=== PATIENT | male | born 1935 | race Caucasian/White ===

== ENCOUNTER → 2017-09-08 11:13 | Outpatient (CLI) | payer MEDICARE, MEDICAID, SELFPAY | PROVIDERS: Family Provider Family Medicine; PCP Family Medicine; Visit Provider Internal Medicine Hematology & Oncology | DX: Z85.46 Personal history of malignant neoplasm of prostate (principal) | CPT/HCPCS: 84153 ==

== ENCOUNTER → 2018-04-28 10:56 | Outpatient (CLI) | payer MEDICARE, MEDICAID, SELFPAY ==
[2018-04-28 11:08] LABS: Add Manual Diff / Slide Review NO; Basophils Percent Auto 0.7 % (0-2); Eosinophils Percent Auto 4.2 % (2-4); Hematocrit 39.7 % (41-53); Hemoglobin 13.2 g/dL (13.5-17.5); Mean Corpuscular HGB Conc 33.3 % (30-36); Mean Corpuscular Hemoglobin 29.6 PG (26-34); Mean Corpuscular Volume 89.1 fL (80-100); Monocytes Percent Auto 5.9 % (3-14); Neutrophils Absolute Auto 3700 /uL (1500-7000); Neutrophils Percent Auto 61.2 % (50-75); Platelet Count 320 X10^3/uL (150-400); Red Blood Cell Count 4.46 X10^6/uL (4.5-5.9); Red Cell Distribution Width 14.7 % (11.6-14.8); White Blood Cell Count 6.1 X10^3/uL (4.5-11.0)
[2018-04-28 11:19] LABS: Alanine Aminotransferase 19 IU/L (21-72); Albumin 4.3 g/dL (3.5-5.0); Albumin Globulin Ratio 1.3 (1.0-2.8); Alkaline Phosphatase 73 U/L (38-126); Aspartate Aminotransferase 22 IU/L (17-59); BUN Creatinine Ratio 18.6 (6-22); Bilirubin Total 0.4 mg/dL (0.2-1.3); Blood Urea Nitrogen 26 mg/dL (9-20); Calcium 9.5 mg/dL (8.4-10.2); Carbon Dioxide 27 mmol/L (22-32); Chloride 105 mmol/L (98-107); Estimated Glomerular Filt Rate 48.8 mL/min (>60); Globulin 3.2 g/dL (1.7-4.1); Glucose 108 mg/dL (80-110); HEMOLYSIS < 15 (0-50); Potassium 4.9 mmol/L (3.4-5.1); Sodium 140 mmol/L (137-145); Total Protein 7.5 g/dL (6.3-8.2)
--- NOTE | 2018-04-28 15:23 | PC.NURSE ---
Creatinine elevated on todays labs to 1.4 up from 1.3. PSA showed a drop from 10.5 to 7.74. All remaining labs stable
== END ==
PROVIDERS: Family Provider Family Medicine; PCP Family Medicine
DX: C61 Malignant neoplasm of prostate (principal); C79.51 Secondary malignant neoplasm of bone
CPT/HCPCS: 36415; 80053; 84153; 85025

== ENCOUNTER → 2019-06-06 09:05 | Outpatient (CLI) | payer MEDICARE, SELFPAY ==
[2019-06-06 09:58] LABS: Add Manual Diff / Slide Review NO; Basophils Absolute Auto 100 /uL (0-100); Basophils Percent Auto 1.3 % (0-2); Eosinophils Absolute Auto 200 /uL (0-450); Eosinophils Percent Auto 3.9 % (2-4); Hematocrit 37.1 % (41-53); Hemoglobin 12.4 g/dL (13.5-17.5); Lymphocytes Absolute Auto 1300 /uL (1100-4500); Lymphocytes Percent Auto 26.3 % (25-40); Mean Corpuscular HGB Conc 33.5 % (30-36); Mean Corpuscular Hemoglobin 29.3 PG (26-34); Mean Corpuscular Volume 87.4 fL (80-100); Monocytes Absolute Auto 300 /uL (0-900); Monocytes Percent Auto 6.2 % (3-14); Neutrophils Absolute Auto 3200 /uL (1500-7000); Neutrophils Percent Auto 62.3 % (50-75); Platelet Count 282 X10^3/uL (150-400); Red Blood Cell Count 4.25 X10^6/uL (4.5-5.9); Red Cell Distribution Width 15.5 % (11.6-14.8); White Blood Cell Count 5.1 X10^3/uL (4.5-11.0)
[2019-06-06 10:18] LABS: Alanine Aminotransferase 9 IU/L (<50); Albumin Globulin Ratio 1.2 (1.0-2.8); Alkaline Phosphatase 107 U/L (38-126); Aspartate Aminotransferase 24 IU/L (17-59); BUN Creatinine Ratio 18.3 (6-22); Bilirubin Total 0.4 mg/dL (0.2-1.3); Blood Urea Nitrogen 22 mg/dL (9-20); Calcium 9.4 mg/dL (8.4-10.2); Carbon Dioxide 28 mmol/L (22-32); Chloride 103 mmol/L (98-107); Estimated Glomerular Filt Rate 58.1 mL/min (>60); Globulin 3.3 g/dL (1.7-4.1); Glucose 105 mg/dL (80-110); HEMOLYSIS < 15 (0-50); Potassium 4.1 mmol/L (3.4-5.1); Sodium 138 mmol/L (137-145); Total Protein 7.3 g/dL (6.3-8.2)
[2019-06-06 10:48] LABS: Prostate Specific Antigen 8.04 ng/mL (0.10-4.00)
== END ==
PROVIDERS: PCP Student in an Organized Health Care Education/Training Program
DX: C61 Malignant neoplasm of prostate (principal)
CPT/HCPCS: 36415; 80053; 84153; 85025

== ENCOUNTER → 2019-08-29 08:56 | Outpatient (CLI) | payer MEDICARE, SELFPAY ==
[2019-08-29 09:20] LABS: Add Manual Diff / Slide Review NO; Basophils Absolute Auto 100 /uL (0-100); Basophils Percent Auto 1.3 % (0-2); Eosinophils Absolute Auto 200 /uL (0-450); Eosinophils Percent Auto 3.9 % (2-4); Hematocrit 35.8 % (41-53); Hemoglobin 12.3 g/dL (13.5-17.5); Lymphocytes Absolute Auto 1300 /uL (1100-4500); Lymphocytes Percent Auto 25.8 % (25-40); Mean Corpuscular HGB Conc 34.4 % (30-36); Mean Corpuscular Hemoglobin 29.8 PG (26-34); Mean Corpuscular Volume 86.8 fL (80-100); Monocytes Absolute Auto 400 /uL (0-900); Monocytes Percent Auto 7.1 % (3-14); Neutrophils Absolute Auto 3100 /uL (1500-7000); Neutrophils Percent Auto 61.9 % (50-75); Platelet Count 267 X10^3/uL (150-400); Red Blood Cell Count 4.13 X10^6/uL (4.5-5.9); Red Cell Distribution Width 15.4 % (11.6-14.8); White Blood Cell Count 4.9 X10^3/uL (4.5-11.0)
[2019-08-29 09:32] LABS: Alanine Aminotransferase 9 IU/L (<50); Albumin Globulin Ratio 1.2 (1.0-2.8); Alkaline Phosphatase 87 U/L (38-126); Aspartate Aminotransferase 24 IU/L (17-59); BUN Creatinine Ratio 17.7 (6-22); Bilirubin Total 0.6 mg/dL (0.2-1.3); Blood Urea Nitrogen 23 mg/dL (9-20); Calcium 9.3 mg/dL (8.4-10.2); Carbon Dioxide 28 mmol/L (22-32); Chloride 101 mmol/L (98-107); Estimated Glomerular Filt Rate 52.9 mL/min (>60); Globulin 3.4 g/dL (1.7-4.1); Glucose 103 mg/dL (80-110); HEMOLYSIS < 15 (0-50); Potassium 4.8 mmol/L (3.4-5.1); Sodium 136 mmol/L (137-145); Total Protein 7.4 g/dL (6.3-8.2)
[2019-08-29 10:03] LABS: Prostate Specific Antigen 11.1 ng/mL (0.10-4.00)
[2019-08-29 10:05] LABS: Testosterone 16.2 ng/dL (71.8-623)
== END ==
PROVIDERS: PCP Student in an Organized Health Care Education/Training Program; Referring Provider Internal Medicine Hematology & Oncology; Visit Provider Internal Medicine Hematology & Oncology
DX: C61 Malignant neoplasm of prostate (principal)
CPT/HCPCS: 36415; 80053; 84153; 84403; 85025

== ENCOUNTER → 2019-09-04 09:34 | Outpatient (CLI) | payer MEDICARE, SELFPAY ==
--- NOTE | 2019-09-04 09:36 | DI.CT.S_ITS ---
PROCEDURE: CT CHEST ABD PEL W CON INDICATIONS: PROSTATE CANCER, RISING CEA TECHNIQUE: After the administration of oral and intravenous contrast, 5 mm thick sections acquired from the lung apices to the symphysis. 5 mm coronal and sagittal reformats were performed, with additional 7 mm coronal MIP reformats through the lungs. For radiation dose reduction, the following was used: automated exposure control, adjustment of mA and/or kV according to patient size. COMPARISON: [facility], CT, ABDOMEN/PELVIS WITH CONTRAST, 08/07/2016, 14:54. MR, PELVIS WITHOUT CONTRAST, 11/22/2009, 9:32. CR, HIP 2V LEFT, 10/20/2007, 13:41. [place], [place], BONE SCAN WHOLE BODY, 10/20/2007, 12:49. MR, PELVIS WITH AND WITHOUT CONTRA, 10/20/2007, 10:06. [place], BONE SCAN WHOLE BODY, 08/28/2016, 13:11. FINDINGS: Image quality: Excellent. CHEST: Lungs and pleura: No acute airspace opacities. No pleural effusions or pneumothorax. Central and peripheral airways appear patent and normal in caliber. Mediastinum: Heart size is normal. No pericardial effusion. No mediastinal or hilar adenopathy by size criteria. Thoracic aorta and central pulmonary arteries are normal in size. Esophagus is normal in caliber. No hiatal hernia. Chest wall: No axillary or supraclavicular adenopathy by size criteria. Thyroid gland is unremarkable. ABDOMEN: Solid organs: Liver is normal in size and enhancement. Gallbladder is unremarkable. Biliary system is non dilated. Pancreas enhances normally. Spleen is normal in size and enhancement. No adrenal nodules. Kidneys demonstrate normal size and enhancement, without hydronephrosis. Peritoneum and bowel: Bowel loops demonstrate normal wall thickness and caliber. No free fluid or air. Nodes and vessels: No retroperitoneal or mesenteric adenopathy by size criteria. Aorta and inferior vena cava are normal in size. Miscellaneous: No ventral hernias. PELVIS: Genitourinary: Bladder wall thickness is normal. Prostatectomy is noted. Miscellaneous: No inguinal hernias or adenopathy. Bones: Multiple pronounced punctate scattered areas of sclerosis are present within the axial and appendicular skeleton. Areas within the abdomen and pelvis previously visualized on the 2017 exam are unchanged. Similar foci are identified within the upper thoracic and cervical spine as well as multiple ribs bilaterally. It is noted these areas were not included within the [id number] on previous exam. IMPRESSION: 1. Nonspecific punctate areas of sclerosis within the axial and appendicular skeleton as described above. It is noted that foci visualized on prior exam are stable. However, additional foci within the cervical and thoracic spine as well as ribs are unable to be evaluated as no prior CT exams within this region are identified. These may represent multiple bone islands. However, given history of rising CEA levels, metastatic disease cannot be excluded. Recommend correlation with bone scan. Dictated by: Fallon Blank M.D. on 09/04/2019 at 13:26 Approved by: Fallon Blank M.D. on 09/04/2019 at 13:35
--- NOTE | 2019-09-04 09:36 | DI.NM.S_ITS ---
PROCEDURE: [place] BONE SCAN WHOLE BODY RADIOPHARMACEUTICAL: 20.2 mCi Tc-99m MDP IV. INDICATIONS: prostate cancer, rising PSA TECHNIQUE: Delayed whole-body scintigrams were obtained approximately 3-4 hours after intravenous injection of radiotracer. Anterior and posterior views were acquired from vertex to feet. Additional left and right oblique views of the thorax were obtained. COMPARISON: [facility], CT, CT CHEST ABD PEL W CON, 09/04/2019, 10:31. FINDINGS: Increased radiotracer uptake noted in the posterior and medial margin of the right 10th and 11th ribs which correspond to subacute fractures identified by CT scan obtained 09/04/2019. Increased radiotracer uptake noted in the posterior lateral aspect of the right rib which corresponds to subacute fracture identified the prior CT scan. Increased radiotracer uptake noted in the anterolateral margins of the right sixth seventh and eighth ribs which correspond to subacute fractures identified prior prior CT scan. Subtle focus of increased radiotracer uptake noted in the anterolateral left sixth rib which corresponds to a small approximately 5 mm diameter rounded sclerotic lesion identified by CT scan. There are additional small sclerotic lesions identified in the left ribs in the thoracic spine which do not have associated increased FDG uptake. No photopenic lesions identified in the osseous skeleton. Mild uptake noted in the cervical spine, thoracic spine, lumbar spine, wrists bilaterally and right knee compatible with osteoarthritis. No abnormal soft tissue uptake. Activity in the kidneys is normal and symmetric. IMPRESSION: 1. Increased radiotracer uptake associated with 5 mm sclerotic lesion in the left seventh rib. Early osseous metastatic disease cannot be excluded. Additional small sclerotic lesions in the ribs bilaterally and thoracic spine do not demonstrate increased FDG uptake which could be due to the absence of osteoblastic activity or lesions below resolution of the study. 2. Subacute right 6th, 7th, 8th 9th, 10th and 11th rib fractures. Dictated by: Kim Florez MD, PhD on 09/04/2019 at 15:37 Approved by: Kim Florez MD, PhD on 09/04/2019 at 15:47
== END ==
PROVIDERS: PCP Student in an Organized Health Care Education/Training Program; Referring Provider Internal Medicine Hematology & Oncology; Visit Provider Internal Medicine Hematology & Oncology
DX: C61 Malignant neoplasm of prostate (principal); R97.21 Rising PSA following treatment for malignant neoplasm of prostate; M84.48XA Pathological fracture, other site, initial encounter for fracture
CPT/HCPCS: 71260; 74177; 78306; A9503; Q9967

== ENCOUNTER → 2020-05-23 10:50 | Outpatient (CLI) | payer MEDICARE, MEDICAID, SELFPAY ==
--- NOTE | 2020-05-23 10:51 | DI.US.S_ITS ---
PROCEDURE: US ABDOMEN COMPLETE INDICATIONS: prostate cancer, rising Cr, ?hydronephrosis TECHNIQUE: Real-time scanning was performed of the abdominal and retroperitoneal organs, with image documentation. COMPARISON: [facility], CT, ABDOMEN/PELVIS WITH CONTRAST, 08/07/2016, 14:54. [facility], CT, CT CHEST ABD PEL W CON, 09/04/2019, 10:31. FINDINGS: Liver: Liver is normal in size and homogeneous in echotexture. The main portal vein is demonstrated to be patent. Gallbladder: No findings of gallstones or sludge are seen. The gallbladder wall is not thickened, measuring 3 mm or less. No specific pericholecystic fluid is seen. The sonographic Alexander sign is negative. Biliary ducts: Intrahepatic bile ducts are non-dilated. Extrahepatic bile duct caliber measures 2 mm. Normal is 6-7 mm or less in diameter, or 10 mm or less post-cholecystectomy. Pancreas: Visualized portions of the pancreas are sonographically normal. Spleen: Spleen is normal in size and homogeneous in echotexture. Kidneys: Kidneys are normal in size and echotexture. Right kidney measures 11.1 cm long; left kidney measures 11.7 cm long. No hydronephrosis or nephrolithiasis. No solid masses. Aorta: Visualized aorta is normal in caliber at less than 3 cm. Iliacs: Proximal common iliac arteries are normal in caliber at less than 2.5 cm. IVC: Intrahepatic inferior vena cava is patent. Miscellaneous: No free abdominal fluid. IMPRESSION: Negative for hydronephrosis. Dictated by: Hardeep Landeros M.D. on 05/23/2020 at 11:18 Approved by: Hardeep Landeros M.D. on 05/23/2020 at 11:19
== END ==
PROVIDERS: PCP Student in an Organized Health Care Education/Training Program; Referring Provider Internal Medicine Hematology & Oncology; Visit Provider Internal Medicine Hematology & Oncology
DX: C61 Malignant neoplasm of prostate (principal); C79.51 Secondary malignant neoplasm of bone; R79.89 Other specified abnormal findings of blood chemistry
CPT/HCPCS: 76700

== ENCOUNTER → 2020-06-26 11:18 | Outpatient (CLI) | payer MEDICARE, MEDICAID, SELFPAY ==
--- NOTE | 2020-06-26 11:21 | DI.RAD.S_ITS ---
PROCEDURE: XR LUMBAR SPINE 2-3V INDICATIONS: lumbar spine pain after rotation ten days ago TECHNIQUE: 3 views of the lumbar spine were acquired. COMPARISON: [facility], CR, XR THORACIC SPINE 3V, 06/26/2020, 11:26. FINDINGS: Bones: 5 [id number] vertebrae are present. There is normal bony alignment. No vertebral body compression fractures. No suspicious bony lesions. The earlier thoracic spine imaging same day had involved segmentation anatomy Caltrate from the upper thoracic spine inferiorly. The current study allows accurate assessment of the lumbosacral spine from the S1 level and directed cephalad. There is a segmentation change as a result. There is a moderate T12 wedge compression fracture and a vertebra plana fracture involving L1. L2 shows an inferior endplate impaction fracture, and overall the chronicity is uncertain Soft tissues: Overlying bowel gas pattern is normal. No suspicious soft tissue calcifications. IMPRESSION: T12 wedge, L1 vertebral plana, and L2 inferior endplate and vertebral body compression fracture. Chronicity is uncertain. MR scanning can be utilized to establish chronicity. Note: The segmentation anatomy on this examination is considered more accurate than on the thoracic study from earlier today, and please considered the thoracolumbar junction fractures described in this report as depicting the correct levels of abnormality. Dictated by: Michael Crouch M.D. on 06/26/2020 at 13:59 Approved by: Michael Crouch M.D. on 06/26/2020 at 14:03
--- NOTE | 2020-06-26 11:21 | DI.RAD.S_ITS ---
PROCEDURE: XR THORACIC SPINE 3V INDICATIONS: lumbar spine pain after rotation ten days ago TECHNIQUE: 3 views of the thoracic spine were acquired. COMPARISON: None. FINDINGS: Bones: No dislocations. No suspicious bony lesions. 12 pairs of ribs are noted, and appear intact where visualized. There is a moderate wedge type compression fracture at what appears to be T9 and T11, and a severe vertebra plana compression fracture at T12. Chronicity is uncertain. Soft tissues: No paravertebral stripe thickening. IMPRESSION: Degenerative disc disease and 3 nearby lower thoracic spine compression fractures with vertebra plana at T12 and moderate wedge compression fractures at T11 and T9. MR could establish chronicity. Dictated by: Michael Crouch M.D. on 06/26/2020 at 13:09 Approved by: Michael Crouch M.D. on 06/26/2020 at 13:29
== END ==
PROVIDERS: PCP Student in an Organized Health Care Education/Training Program; Referring Provider Nurse Practitioner Family; Visit Provider Nurse Practitioner Family
DX: M54.9 Dorsalgia, unspecified (principal); M48.55XA Collapsed vertebra, not elsewhere classified, thoracolumbar region, initial encounter for fracture; M51.34 Other intervertebral disc degeneration, thoracic region
CPT/HCPCS: 72072; 72100

== ENCOUNTER → 2020-07-05 09:02 | Outpatient (CLI) | payer MEDICARE, MEDICAID, SELFPAY ==
--- NOTE | 2020-07-05 09:03 | DI.MRI.S_ITS ---
PROCEDURE: MR LUMBAR SPINE WO/W CON INDICATIONS: back pain TECHNIQUE: Noncontrast sagittal T1 spin echo and T2 fast spin echo, sagittal STIR, axial T1 and T2 fast spin echo through the lumbar spine. In cases with scoliosis, additional coronal T2 fast spin echo may be performed. After the administration of contrast, sagittal and axial T1 spin echo with fat saturation through the lumbar spine. COMPARISON: [facility], CT, CT CHEST ABD PEL W CON, 09/04/2019, 10:31. [facility], CR, XR THORACIC SPINE 3V, 06/26/2020, 11:26. [facility], CR, XR LUMBAR SPINE 2-3V, 06/26/2020, 11:26. [facility], [place], [place] BONE SCAN WHOLE BODY, 09/04/2019, 13:09. FINDINGS: Image quality: Excellent. Alignment and curvature: There is normal bony alignment. Marrow: There is an L2 endplate deformity, unchanged compared to prior exam. There is mild increased enhancement within this region. There is severe compression deformity comedo ink at least 90% at L1 an approximate 45% compression deformity at T12. There are unchanged compared to thoracic and lumbar spine x-rays of 06/26/2020, but new compared to more remote prior exams. Areas of enhancement are identified within the T12 and L1 vertebral bodies. Spinal cord: Conus medullaris terminates at the L1 level. Visualized spinal cord demonstrates normal signal, without suspicious enhancement. Paraspinous soft tissues: No paravertebral masses or abnormal enhancement. Discs: Moderate disc desiccation is present throughout the lumbar spine. T12-L1: There is what appears to be cranially located disc extrusion versus posterior element fragment from compression fracture causing severe spinal stenosis. There is moderate to severe bilateral foraminal narrowing. L1-L2: Severe compression deformity is present of the L1 vertebral body. Moderate to severe spinal stenosis is present with [id number] bilateral foraminal narrowing. L2-L3: Mild disc bulge with mild spinal stenosis. [id number]-[id number] bilateral foraminal narrowing with facet and ligamentum flavum hypertrophy. L3-L4: Mild disc bulge with mild spinal stenosis. Moderate bilateral foraminal narrowing with facet and ligamentum flavum hypertrophy. L4-L5: Mild disc bulge with minimal spinal stenosis. Minimal left foraminal narrowing with facet and ligamentum flavum hypertrophy. L5-S1: Minimal disc bulge without spinal stenosis or foraminal narrowing. IMPRESSION: 1. Significant compression deformities at T12 and L1, new compared to 2020. In addition, these areas demonstrate abnormal marrow signal and enhancement most concerning for pathologic fracture. 2. Inferior endplate deformity at L2 is present which was present in 2020. There are patchy areas of enhancement identified within this region which in concern for metastatic disease. 3. Severe spinal stenosis at levels of compression deformity felt to be secondary to areas of extruded disc/migrated posterior elements, as enhancing paravertebral or epidural soft tissue is not well visualized. Dictated by: Fallon Blank M.D. on 07/05/2020 at 12:54 Approved by: Fallon Blank M.D. on 07/05/2020 at 13:08
--- NOTE | 2020-07-05 09:03 | DI.MRI.S_ITS ---
PROCEDURE: MR THORACIC SPINE WO/W CON COMPARISON: [facility], CR, XR THORACIC SPINE 3V, 06/26/2020, 11:26. [facility], CR, XR LUMBAR SPINE 2-3V, 06/26/2020, 11:26. [facility], US, US ABDOMEN COMPLETE, 05/23/2020, 11:10. [facility], [place], [place] BONE SCAN WHOLE BODY, 09/04/2019, 13:09. [facility], CT, CT CHEST ABD PEL W CON, 09/04/2019, 10:31. MRI lumbar spine 07/05/2020, INDICATIONS: back pain TECHNIQUE: Pre and postcontrast sagittal and axial T1 as well as precontrast sagittal axial T2 weighted images were obtained throughout the lumbar spine FINDINGS: As identified on prior exam, there is severe compression deformity of at least 90% at L1 an approximate 45% compression deformity at T12. They are unchanged compared to thoracic and lumbar spine x-rays of 06/26/2020, but new compared to more remote prior exams. Areas of enhancement are also identified within the T12 and L1 vertebral bodies. As noted on lumbar spine MR, there appears to be a cranially located disc extrusion versus posterior element fragment from compression fracture at T12 causing severe spinal stenosis. Moderate to severe spinal stenosis is also present at L1-L2. There is a T10 inferior endplate compression deformity with enhancement. No spinal stenosis is present. This is also new compared to more remote prior exam. There are areas of hypointense T1 signal within the T2, T3, T4 and to a lesser extent T6, T7 and T8 vertebral bodies. There is abnormal signal also identified within the larger foci on T2 sequence. These areas do not demonstrate appreciable enhancement. Multilevel disc desiccation is present throughout the thoracic spine. IMPRESSION: 1. 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 2. Inferior endplate deformity at T10 with enhancement also concerning for pathologic fracture metastatic disease. 3. Multilevel is a abnormal T1 and T2 signal throughout the thoracic spine as above most concerning for metastatic disease despite lack of enhancement. Dictated by: Fallon Blank M.D. on 07/05/2020 at 13:11 Approved by: Fallon Blank M.D. on 07/05/2020 at 13:16
== END ==
PROVIDERS: PCP Student in an Organized Health Care Education/Training Program; Referring Provider Internal Medicine Hematology & Oncology; Visit Provider Internal Medicine Hematology & Oncology
DX: C79.51 Secondary malignant neoplasm of bone (principal); C61 Malignant neoplasm of prostate; M54.9 Dorsalgia, unspecified; M48.061 Spinal stenosis, lumbar region without neurogenic claudication
CPT/HCPCS: 72157; 72158

== ENCOUNTER → 2020-07-11 09:14 | Outpatient (CLI) | payer MEDICARE, MEDICAID, SELFPAY ==
--- NOTE | 2020-07-11 09:16 | DI.NM.S_ITS ---
PROCEDURE: [place] BONE SCAN WHOLE BODY RADIOPHARMACEUTICAL: 20.6 mCi Tc-99m MDP IV. INDICATIONS: metastatic prostate cancer, to spine TECHNIQUE: Delayed whole-body scintigrams were obtained approximately 3-4 hours after intravenous injection of radiotracer. Anterior and posterior views were acquired from vertex to feet. COMPARISON: [place], [place], BONE SCAN WHOLE BODY, 08/28/2016, 13:11. [facility], CR, XR LUMBAR SPINE 2-3V, 06/26/2020, 11:26. [place], [place], [place] BONE SCAN WHOLE BODY, 09/04/2019, 13:09. [facility], CR, XR THORACIC SPINE 3V, 06/26/2020, 11:26. [facility], MR, MR LUMBAR SPINE WO/W CON, 07/05/2020, 9:17. [facility], MR, MR THORACIC SPINE WO/W CON, 07/05/2020, 9:17. FINDINGS: The right rib lesions seen on the last bone scan are no longer conspicuous. There is increased activity involving T12 and L1, correlating with MRI finding of compression fractures. Lesser degree of increased uptake in the area of T10 correlating with a chronic compression fracture seen on MRI. Increased uptake at T9 and T10 costovertebral junctions bilaterally, likely degenerative in nature. No lesions are identified in skull, sternum, clavicles, scapulae, bony pelvis and visualized shafts of the long bones. There are foci of increased periarticular activity involving shoulders, sternoclavicular joints, wrists, hips and SI joints, compatible with degenerative/arthritic changes. IMPRESSION: 1. Increased activity in T12 and L1 correlating with MRI finding of compression fractures. Question pathological fractures. 2. Right rib lesions seen on the last bone scan are no longer conspicuous. Dictated by: Christina Bryson M.D. on 07/11/2020 at 13:58 Approved by: Christina Bryson M.D. on 07/11/2020 at 15:33
== END ==
PROVIDERS: PCP Student in an Organized Health Care Education/Training Program; Referring Provider Internal Medicine Hematology & Oncology; Visit Provider Internal Medicine Hematology & Oncology
DX: C61 Malignant neoplasm of prostate (principal); C79.51 Secondary malignant neoplasm of bone; M54.9 Dorsalgia, unspecified
CPT/HCPCS: 78306; A9503

== ENCOUNTER 2020-07-19 11:06 | Emergency (ER) | payer MEDICARE, MEDICAID, SELFPAY ==
[2020-07-19] VITALS (36 sets, daily range): BP systolic 73–152; BP diastolic 51–72; PULSE 70–107; RESP 17–82; TEMP 36.2–36.7; O2SAT 87–99
[2020-07-19 11:33] LABS: Hemoglobin 10.9 g/dL (13.5-17.5); Mean Corpuscular HGB Conc 33.1 % (30-36); Mean Corpuscular Volume 87.4 fL (80-100); Platelet Count 390 X10^3/uL (150-400); Red Blood Cell Count 3.78 X10^6/uL (4.5-5.9); Red Cell Distribution Width 16.5 % (11.6-14.8); White Blood Cell Count 21.7 X10^3/uL (4.5-11.0)
[2020-07-19 11:34] LABS: Add Manual Diff / Slide Review YES
[2020-07-19 11:35] LABS: INR 1.3 (0.9-1.3); Prothrombin Time 14.4 SECONDS (10.1-12.7)
[2020-07-19] MEDS: SODIUM CHLORIDE 0.9% 1,000 ML 1000 ML IV ×2 (11:35→12:43)
[2020-07-19 11:37] LABS: PTT Partial Thromboplastin Tim 33 SECONDS (26.4-36.2)
[2020-07-19 11:40] LABS: Albumin 3.3 g/dL (3.5-5.0); Alkaline Phosphatase 219 U/L (38-126); Aspartate Aminotransferase 70 IU/L (17-59); BUN Creatinine Ratio 13.6 (6-22); Bilirubin Total 1.2 mg/dL (0.2-1.3); Blood Urea Nitrogen 47 mg/dL (9-20); Calcium 9.1 mg/dL (8.4-10.2); Carbon Dioxide 17 mmol/L (22-32); Chloride 98 mmol/L (98-107); Creatine Kinase 944 U/L (55-170); Estimated Glomerular Filt Rate 17.1 mL/min (>60); Globulin 3.4 g/dL (1.7-4.1); Glucose 134 mg/dL (80-110); Lipase 33 U/L (23-300); Magnesium 2.2 mg/dL (1.6-2.3); Potassium 4.9 mmol/L (3.4-5.1); Sodium 132 mmol/L (137-145); Total Protein 6.7 g/dL (6.3-8.2)
--- NOTE | 2020-07-19 11:45 | ED_ITS ---
HPI - Fall General Chief Complaint: Weakness Stated Complaint: fell yesterday,cannot walk,pain Time Seen by Provider: 07/19/20 11:31 Source: family Mode of arrival: Family Vehicle History of Present Illness HPI Narrative: This is a 84-year-old male who comes emergency department with ground level fall yesterday. Patient has known metastatic prostate cancer and history of CVA. He is currently on Lupron and oral medication for his cancer. Patient lives on [place] independently with his sister living 1/4 mi away. Patient was noted to have T12 and L1 compression deformities 3 weeks ago. Since then he started oxycodone which has made him little bit more confused and sister thinks more likely to fall. Patient has not had any fevers or chills. He denies any chest pain or shortness of breath currently but she states he had sandra e difficulty talking immediately after his fall. His also continued to have back pain. His main complaint is his left leg/hip region. He was lifted up by a neighbor who put him into bed patient has continued to be significantly uncomfortable and they arranged transportation here from [place]. Related Data Home Medications Medication Instructions Recorded Confirmed Lupron 1 dose SUBCUT [id number] 07/19/20 07/19/20 oxycodone 10 - 20 mg PO Q8H PRN 07/19/20 07/19/20 Previous Rx's Medication Instructions Recorded enzalutamide [Xtandi] 160 mg PO DAILY #120 cap 11/23/19 Allergies Allergy/AdvReac Type Severity Reaction Status Date / Time No Known Drug Allergies Allergy Verified 07/19/20 11:28 Review of Systems Review of Systems ROS Unobtainable: All systems reviewed & are unremarkable except as noted in HPI and below Patient History Surgical History (Updated 07/19/20 @ 11:49 by Teena Triana DO) H/O prostatectomy Social History Smoking Status: Never smoker Smoking Status: Never smoker alcohol intake frequency: 0-2 drinks per day Substance Use Type: does not use Exam Narrative Exam Narrative: GEN: Cachectic, pale male, alert and oriented and answers majority of questions appropriately occasionally seems confused, patient also does seem hard of hearing, patient appears to be in mild distress. HEENT: Atraumatic, pupils are equal round reactive to light, extraocular movements are intact, nares are clear. Throat is clear without any exudates, erythema, tonsillar enlargement or uvular deviation, dry mucous membranes. HEART: Regular rate and rhythm without murmur, clicks, rubs. LUNGS:Lungs clear to auscultation, no wheezes, rales, crackles, chest moves symmetrically, no tachypnea or accessory muscle use. ABD:bowel sounds normal, soft, non-tender, no guarding, rebound, rigidity, no masses noted, no hepatosplenomegaly :No CVA tenderness MSCL: Patient has tenderness over the area of the left hip, he is externally rotated and shortened on the left side, patient's has difficulty palpating pulses bilateral lower extremities, there is no temperature differential between the left and right and patient's cap refill is equal bilaterally, patient is able to independently dorsiflex and plantar flex both feet, he has equal sensation bilaterally. NEURO:CN 2-12 intact, sensation normal SKIN: No obvious rash or lesions appreciated. There is some ecchymosis at the left lateral buttock. Initial Vital Signs Initial Vital Signs: Vital Signs Pulse Oximetry 97 07/19/20 11:16 Scores GCS [place] coma scale eye opening: Spontaneous Ayana coma scale verbal response: Confused Ayana coma scale motor response: Obey commands Ayana coma scale total score: 14 Course Orders Ordered: ED Orders 07/19/20 11:21 Complete Blood Count AUTO DIFF Stat Comprehensive Metabolic Panel Stat Lactate (Lactic Acid) Stat Lipase Stat Magnesium Stat Partial Thromboplastin Time Stat Procalcitonin Stat Prothrombin Time INR Stat Troponin & CK Cardiac Panel Stat 07/19/20 11:27 EKG-12 Lead Stat 07/19/20 11:30 COVID19 - ADMIT (RADIOLOGIC TECH swab/PCR) Stat 07/19/20 11:35 Blood Culture Stat 07/19/20 11:44 CT cervical spine wo con Stat CT head/brain wo con Stat 07/19/20 12:13 CT chest abd pel w con Stat 07/19/20 13:15 Ictotest Urine Stat Urinalysis and Microscopic Stat Urine Culture Stat 07/19/20 13:46 Troponin I Stat Discontinued Medications Sodium Chloride (Normal Saline 0.9%) 1,000 mls @ 1,000 mls/hr IV BOLUS ONE Stop: 07/19/20 12:53 Last Infusion: 07/19/20 12:34 Dose: 0 mls/hr Documented by: Admin: 07/19/20 11:35 Dose: 1,000 mls/hr Documented by: ELADIO Sodium Chloride (Normal Saline 0.9%) 1,000 mls @ 1,000 mls/hr IV BOLUS PRN PRN Reason: Fluid replacement Last Infusion: 07/19/20 14:18 Dose: 0 mls/hr Documented by: Admin: 07/19/20 12:43 Dose: 1,000 mls/hr Documented by: JULIÁN Piperacillin/Tazobactam/Dextrose (Zosyn) 3.375 gm in 50 mls @ 100 mls/hr IV NOW ONE Stop: 07/19/20 13:05 Last Infusion: 07/19/20 13:28 Dose: 0 mls/hr Documented by: Admin: 07/19/20 12:45 Dose: 100 mls/hr Documented by: JULIÁN Sodium Chloride (Normal Saline 0.9%) 1,000 mls @ 200 mls/hr IV CONT AKASH Last Infusion: 07/19/20 14:49 Dose: 0 mls/hr Documented by: Admin: 07/19/20 14:21 Dose: 200 mls/hr Documented by: JULIÁN Reevaluation(s) Reevaluation #1: Discussed today's findings with the patient. He is in acute renal failure, his troponin is elevated, he appears to have sepsis his hypotension is improving with fluids and he has a left hip fracture which after discussion with Radiology appears to likely not be pathologic although he has multiple compression fractures that likely are. He also has a sternal fracture. Discussed with patient at this time he is a full code, we did discuss different options. His sister who helps to make decisions had left to catch the [place] back to [place] and I was unable to reach her via phone and there was no option to leave a voicemail. Time: 13:05 Consultations Consultation #1: Dr. Diaz with orthopedic surgery. Happy to see patient for orthopedic issues but if has multiple serious comorbidities requiring additional subspecialty care agrees with plan for transfer. Time: 13:40 Consultation #2: [facility] general surgery. Dr. Antunez accepts for transfer to [facility]. Time: 13:52 Vital Signs Vital signs: Vital Signs - 8 hr 07/19/20 11:16 07/19/20 11:17 07/19/20 11:20 Temperature Pulse Rate 92 H Respiratory Rate 22 Blood Pressure 113/66 102/61 Pulse Oximetry 97 95 07/19/20 11:21 07/19/20 11:30 07/19/20 11:31 Temperature 98.0 F Pulse Rate 107 H 83 83 Respiratory Rate 20 24 24 Blood Pressure 113/66 75/51 L 73/52 L Pulse Oximetry 99 97 97 07/19/20 11:39 07/19/20 11:40 07/19/20 11:41 Temperature Pulse Rate 87 87 86 Respiratory Rate 22 18 21 Blood Pressure 89/55 L 90/52 L Pulse Oximetry 96 97 97 07/19/20 11:42 07/19/20 11:43 07/19/20 11:44 Temperature Pulse Rate 85 85 85 Respiratory Rate 17 22 20 Blood Pressure 91/54 L Pulse Oximetry 97 97 97 07/19/20 11:50 07/19/20 12:08 07/19/20 12:10 Temperature Pulse Rate 81 90 86 Respiratory Rate 21 77 H Blood Pressure 91/51 L Pulse Oximetry 96 99 98 07/19/20 12:12 07/19/20 12:20 07/19/20 12:30 Temperature Pulse Rate 85 81 79 Respiratory Rate 82 H 36 H 36 H Blood Pressure 109/53 L 101/51 L 116/57 L Pulse Oximetry 96 87 L 94 07/19/20 12:40 07/19/20 12:50 07/19/20 13:00 Temperature Pulse Rate 79 78 79 Respiratory Rate 56 H Blood Pressure 126/60 Pulse Oximetry 97 93 94 07/19/20 13:10 07/19/20 13:20 07/19/20 13:27 Temperature Pulse Rate 77 76 76 Respiratory Rate 20 38 H 65 H Blood Pressure 132/66 Pulse Oximetry 92 96 96 07/19/20 13:30 07/19/20 13:40 07/19/20 13:46 Temperature Pulse Rate 75 72 73 Respiratory Rate 50 H 28 H 21 Blood Pressure 110/60 139/64 Pulse Oximetry 93 95 98 07/19/20 13:50 07/19/20 14:00 07/19/20 14:10 Temperature Pulse Rate 73 71 70 Respiratory Rate 34 H 35 H 29 H Blood Pressure Pulse Oximetry 98 96 97 07/19/20 14:12 07/19/20 14:15 07/19/20 14:20 Temperature Pulse Rate 72 74 74 Respiratory Rate 34 H 38 H 35 H Blood Pressure 152/72 H 135/67 Pulse Oximetry 95 94 96 07/19/20 14:30 07/19/20 14:40 07/19/20 14:55 Temperature 97.2 F L Pulse Rate 73 73 Respiratory Rate 20 29 H Blood Pressure 112/58 L Pulse Oximetry 97 97 MDM - Fall Lab Data Attestation: I reviewed the patient's lab results. Result diagrams: 07/19/20 11:21 07/19/20 11:21 Labs: Lab Results 07/19/20 07/19/20 07/19/20 Range/Units 11:21 11:21 11:21 WBC 21.7 H (4.5-11.0) X10^3/uL RBC 3.78 L (4.5-5.9) X10^6/uL Hgb 10.9 L (13.5-17.5) g/dL Hct 33.0 L (41-53) % MCV 87.4 (80-100) fL MCH 29.0 (26-34) PG MCHC 33.1 (30-36) % RDW 16.5 H (11.6-14.8) % Plt Count 390 (150-400) X10^3/uL Neut % (Auto) Not Reportable Lymph % (Auto) Not Reportable [place] % (Auto) Not Reportable Eos % (Auto) Not Reportable Baso % (Auto) Not Reportable Lymph # (Auto) Not Reportable [place] # (Auto) Not Reportable Baso # (Auto) Not Reportable Total Counted 100 Seg Neutrophils % 62.0 (38-70) % Band Neutrophils % 23.0 H (3-7) % Lymphocytes % (Manual) 9.0 L (25-45) % Monocytes % (Manual) 6.0 (2-11) % Neutrophils # (Manual) 08851 H (8005-7617) /uL RBC Morphology Not Reportable Anisocytosis 2+ H PT 14.4 H (10.1-12.7) SECONDS INR 1.3 (0.9-1.3) APTT 33 (26.4-36.2) SECONDS Sodium 132 L (137-145) mmol/L Potassium 4.9 (3.4-5.1) mmol/L Chloride 98 (98-107) mmol/L Carbon Dioxide 17 L (22-32) mmol/L BUN 47 H (9-20) mg/dL Creatinine 3.45 H (0.66-1.25) mg/dL Estimated GFR 17.1 L (>60) mL/min BUN/Creatinine Ratio 13.6 (6-22) Glucose 134 H (80-110) mg/dL Lactate (0.7-2.1) mmol/L Calcium 9.1 (8.4-10.2) mg/dL Magnesium 2.2 (1.6-2.3) mg/dL Total Bilirubin 1.2 (0.2-1.3) mg/dL AST 70 H (17-59) IU/L ALT 28 (<50) IU/L Alkaline Phosphatase 219 H (38-126) U/L Total Creatine Kinase 944 H (55-170) U/L CK-MB (CK-2) 6.36 H (<2.37) ng/mL CK-MB (CK-2) Rel Index 0.7 L (1.5-5.0) % Troponin I 0.126 H* (0.01-0.034) ng/mL Total Protein 6.7 (6.3-8.2) g/dL Albumin 3.3 L (3.5-5.0) g/dL Globulin 3.4 (1.7-4.1) g/dL Albumin/Globulin Ratio 1.0 (1.0-2.8) Lipase 33 (23-300) U/L Procalcitonin 2.09 H (<0.5) ng/mL Urine Color Urine Appearance Urine pH (4.5-8.0) Ur Specific [place] (1.000-1.035) Urine Protein (Negative) Urine Glucose (UA) (Negative) g/dL Urine Ketones (NEGATIVE) Urine Occult Blood (Negative) Urine Nitrate (Negative) Urine Bilirubin (NEGATIVE) Ur Bilirubin Confirm (Negative) Urine Urobilinogen (0.2) E.U./dL Ur Leukocyte Esterase (NEGATIVE) Urine RBC (0-5/HPF) Urine WBC (0-5/HPF) Ur Squamous Epith Cells (0-5/HPF) Urine Bacteria (None) Hyaline Casts (None) Granular Casts (None) Ur Culture Indicated? SARS-CoV-2 (PCR) (Negative) 07/19/20 07/19/20 07/19/20 Range/Units 11:21 11:30 13:15 WBC (4.5-11.0) X10^3/uL RBC (4.5-5.9) X10^6/uL Hgb (13.5-17.5) g/dL Hct (41-53) % MCV (80-100) fL MCH (26-34) PG MCHC (30-36) % RDW (11.6-14.8) % Plt Count (150-400) X10^3/uL Neut % (Auto) Lymph % (Auto) [place] % (Auto) Eos % (Auto) Baso % (Auto) Lymph # (Auto) [place] # (Auto) Baso # (Auto) Total Counted Seg Neutrophils % (38-70) % Band Neutrophils % (3-7) % Lymphocytes % (Manual) (25-45) % Monocytes % (Manual) (2-11) % Neutrophils # (Manual) (6248-8295) /uL RBC Morphology Anisocytosis PT (10.1-12.7) SECONDS INR (0.9-1.3) APTT (26.4-36.2) SECONDS Sodium (137-145) mmol/L Potassium (3.4-5.1) mmol/L Chloride (98-107) mmol/L Carbon Dioxide (22-32) mmol/L BUN (9-20) mg/dL Creatinine (0.66-1.25) mg/dL Estimated GFR (>60) mL/min BUN/Creatinine Ratio (6-22) Glucose (80-110) mg/dL Lactate 7.3 H* (0.7-2.1) mmol/L Calcium (8.4-10.2) mg/dL Magnesium (1.6-2.3) mg/dL Total Bilirubin (0.2-1.3) mg/dL AST (17-59) IU/L ALT (<50) IU/L Alkaline Phosphatase (38-126) U/L Total Creatine Kinase (55-170) U/L CK-MB (CK-2) (<2.37) ng/mL CK-MB (CK-2) Rel Index (1.5-5.0) % Troponin I (0.01-0.034) ng/mL Total Protein (6.3-8.2) g/dL Albumin (3.5-5.0) g/dL Globulin (1.7-4.1) g/dL Albumin/Globulin Ratio (1.0-2.8) Lipase (23-300) U/L Procalcitonin (<0.5) ng/mL Urine Color Yellow Urine Appearance Cloudy Urine pH 5.0 (4.5-8.0) Ur Specific [place] 1.025 (1.000-1.035) Urine Protein 2+ H (Negative) Urine Glucose (UA) Negative (Negative) g/dL Urine Ketones Negative (NEGATIVE) Urine Occult Blood 3+ H (Negative) Urine Nitrate Positive (Negative) Urine Bilirubin 1+ H (NEGATIVE) Ur Bilirubin Confirm Negative (Negative) Urine Urobilinogen 0.2 (0.2) E.U./dL Ur Leukocyte Esterase Trace H (NEGATIVE) Urine RBC 5-10/hpf H (0-5/HPF) Urine WBC 1-5/hpf (0-5/HPF) Ur Squamous Epith Cells 1-5 /hpf (0-5/HPF) Urine Bacteria Many (>30) H (None) Hyaline Casts 5-10/lpf (None) Granular Casts 1-5/lpf (None) Ur Culture Indicated? Specimen cultured SARS-CoV-2 (PCR) Negative (Negative) 07/19/20 07/19/20 Range/Units 13:46 13:46 WBC (4.5-11.0) X10^3/uL RBC (4.5-5.9) X10^6/uL Hgb (13.5-17.5) g/dL Hct (41-53) % MCV (80-100) fL MCH (26-34) PG MCHC (30-36) % RDW (11.6-14.8) % Plt Count (150-400) X10^3/uL Neut % (Auto) Lymph % (Auto) [place] % (Auto) Eos % (Auto) Baso % (Auto) Lymph # (Auto) [place] # (Auto) Baso # (Auto) Total Counted Seg Neutrophils % (38-70) % Band Neutrophils % (3-7) % Lymphocytes % (Manual) (25-45) % Monocytes % (Manual) (2-11) % Neutrophils # (Manual) (1824-1990) /uL RBC Morphology Anisocytosis PT (10.1-12.7) SECONDS INR (0.9-1.3) APTT (26.4-36.2) SECONDS Sodium (137-145) mmol/L Potassium (3.4-5.1) mmol/L Chloride (98-107) mmol/L Carbon Dioxide (22-32) mmol/L BUN (9-20) mg/dL Creatinine (0.66-1.25) mg/dL Estimated GFR (>60) mL/min BUN/Creatinine Ratio (6-22) Glucose (80-110) mg/dL Lactate 1.6 (0.7-2.1) mmol/L Calcium (8.4-10.2) mg/dL Magnesium (1.6-2.3) mg/dL Total Bilirubin (0.2-1.3) mg/dL AST (17-59) IU/L ALT (<50) IU/L Alkaline Phosphatase (38-126) U/L Total Creatine Kinase (55-170) U/L CK-MB (CK-2) (<2.37) ng/mL CK-MB (CK-2) Rel Index (1.5-5.0) % Troponin I 0.108 H (0.01-0.034) ng/mL Total Protein (6.3-8.2) g/dL Albumin (3.5-5.0) g/dL Globulin (1.7-4.1) g/dL Albumin/Globulin Ratio (1.0-2.8) Lipase (23-300) U/L Procalcitonin (<0.5) ng/mL Urine Color Urine Appearance Urine pH (4.5-8.0) Ur Specific [place] (1.000-1.035) Urine Protein (Negative) Urine Glucose (UA) (Negative) g/dL Urine Ketones (NEGATIVE) Urine Occult Blood (Negative) Urine Nitrate (Negative) Urine Bilirubin (NEGATIVE) Ur Bilirubin Confirm (Negative) Urine Urobilinogen (0.2) E.U./dL Ur Leukocyte Esterase (NEGATIVE) Urine RBC (0-5/HPF) Urine WBC (0-5/HPF) Ur Squamous Epith Cells (0-5/HPF) Urine Bacteria (None) Hyaline Casts (None) Granular Casts (None) Ur Culture Indicated? SARS-CoV-2 (PCR) (Negative) Imaging Data CT scan - head: Radiologist's Impression: [address] [id number] Scan ReportSigned Patient: Binu Fernández#: [id number]: 1935cct:[id number]/Sex: 84 / MDate of Service: 07/19/20Loc: EDAccession Number: [id number] Procedure: CT head/brain wo con Ordering Provider: Teena Triana D.O. PROCEDURE: CT HEAD/BRAIN WO CON INDICATIONS: fall yesterday, hx metastatic ca TECHNIQUE: Noncontrast 4.5 mm thick angled axial sections acquired from the foramen magnum to the vertex, with coronal and sagittal reformats. For radiation dose reduction, the following was used: automated exposure control, adjustment of mA and/or kV according to patient size. COMPARISON: [facility], CT, CT CERVICAL SPINE WO CON, 07/19/2020, 11:49. FINDINGS: Image quality: Excellent. CSF spaces: Basal cisterns are patent. No extra-axial fluid collections. Ventricles are normal in size and shape. Brain: No midline shift. No intracranial masses or hemorrhage. No area of hypodensity in a large vascular distribution to suggest acute infarction. Periventricular hypodensity consistent with chronic microvascular ischemic change. Age-related parenchymal loss. Skull and face: Calvarium and visualized facial bones are intact, without suspicious lesions. Sinuses: Visualized sinuses and mastoids are clear. IMPRESSION: No acute intracranial abnormality. Dictated by: Kota Mcmullen M.D. on 07/19/2020 at 12:23 Approved by: Kota Mcmullen M.D. on 07/19/2020 at 12:25 CT - cervical spine: Radiologist's Impression: [address] [id number] Scan ReportSigned Patient: Binu Fernández#: [id number]: 8Acct:[id number]/Sex: 84 / MDate of Service: 07/19/20Loc: EDAccession Number: [id number] Procedure: CT cervical spine wo con Ordering Provider: Teena Triana D.O. PROCEDURE: CT CERVICAL SPINE WO CON INDICATIONS: fall TECHNIQUE: Noncontrast 3 mm thick sections acquired from the skull base to the T4 level. Sagittal and coronal reformats were then constructed. For radiation dose reduction, the following was used: automated exposure control, adjustment of mA and/or kV according to patient size. COMPARISON: [facility], [place], CT HEAD/BRAIN WO CON, 07/19/2020, 11:49. FINDINGS: Image quality: Excellent. Bones: No fractures or dislocations. Heterogeneous appearance of the bones with small sclerotic and lucent foci. Visualized superior ribs are intact. Soft tissues: Carotid bulb calcified atherosclerotic plaque bilaterally. Prevertebral soft tissues are normal in thickness. No paravertebral hematomas. No apical pneumothoraces. Pleura apically scarring. IMPRESSION: No acute osseous abnormality. Heterogeneous appearance of the bones with small sclerotic and lucent foci. Dictated by: Kota Mcmullen M.D. on 07/19/2020 at 12:25 Approved by: Kota Mcmullen M.D. on 07/19/2020 at 12:29 CT scan - abdomen/pelvis: Radiologist's Impression: Rodolfo Fernández 84 M [address] Scan ReportSigned Patient: Rodolfo FernándezMR#: [id number]: 8Acct:[id number]/Sex: 84 / MDate of Service: 07/19/20Loc: EDAccession Number: [id number] Procedure: CT chest abd pel w con Ordering Provider: Teena Triana D.O. PROCEDURE: CT CHEST ABD PEL W CON INDICATIONS: fall, left hip pain, metastatic pancreatic cancer TECHNIQUE: After the administration of intravenous contrast, 5 mm thick sections acquired from the lung apices to the symphysis. 2.5 mm thick coronal and sagittal reformats were acquired. Additional 7 mm thick coronal maximum intensity projection (MIP) reformats acquired through the lungs. Optional 10-minute delayed imaging may be performed from the kidneys to the bladder. For radiation dose reduction, the following was used: automated exposure control, adjustment of mA and/or kV according to patient size. COMPARISON: [facility], [place], NM BONE SCAN WHOLE BODY, 07/11/2020, 12:31. [facility], MR, MR THORACIC SPINE WO/W CON, 07/05/2020, 9:17. [facility], CT, CT CHEST ABD PEL W CON, 09/04/2019, 10:31. FINDINGS: FINDINGS: Image quality: Excellent. CHEST: Lungs and pleura: No acute air space opacities. Subpleural septal thickening is noted and appears unchanged. No pleural effusions or pneumothorax. Central and peripheral airways are patent and normal in caliber. Mediastinum: Heart size is normal. The coronary arteries have atherosclerotic calcifications. No pericardial effusion. No mediastinal adenopathy by size criteria. Thoracic aorta and central pulmonary arteries are normal in size. Esophagus is normal in caliber. There is a small hiatal hernia. Chest wall: Thyroid gland is normal . No soft tissue abnormality. ABDOMEN: Solid organs: Liver: The liver has no mass or intrahepatic biliary ductal dilatation. The portal vein and hepatic veins are patent. Biliary: The gallbladder has no gallstones, pericholecystic fluid, gallbladder wall thickening, or surrounding inflammatory change. Pancreas: The pancreas has no mass or ductal dilatation. There is no surrounding inflammation. Spleen: Normal size. There are no masses. Adrenals: No hypertrophy or nodules. Kidneys: No obstructive calculus or hydronephrosis. No solid mass. No cystic mass. Bowel: The distal esophagus and stomach are normal. The small bowel has a normal caliber and appearance. The terminal ileum is normal. The large bowel has a normal caliber and appearance. The appendix is normal. No free fluid or air. Nodes and vessels: No retroperitoneal or mesenteric adenopathy by size criteria. Aorta and inferior vena cava are normal in size. Abdominal wall: No abdominal wall mass or hernia. PELVIS: Genitourinary: The bladder has no wall thickening or mass. No bladder calcifications. Miscellaneous: No inguinal hernias or adenopathy. BONES: There is a nondisplaced fracture of the upper body of the sternum. There is a compression fracture of T10 with 20 percent anterior height loss, T12 with 10 percent anterior height loss, L1 with 80 percent anterior height loss, and L2 with convexity of the inferior endplate. The T12 compression fracture has approximately 2 millimeters retropulsion. The L1 compression fracture has 9 millimeters retropulsion causing severe central canal stenosis. There are multiple punctate foci of sclerosis throughout the thoracic and lumbar spine which appear similar to the prior CT on 09/04/2019 however are suspicious for metastatic disease. The left hip has a severely comminuted, displaced, and angulated intertrochanteric hip fracture. IMPRESSION: 1. Multiple thoracic and lumbar compression fractures are unchanged compared to MRI on 07/05/2020. 2. Sternal fracture is probably new since there was no activity in the sternum on bone scan dated 07/11/20. 3. Severely comminuted and angulated left intertrochanteric hip fracture. 4. Multiple sclerotic foci throughout the visualized bones consistent with pro state metastatic disease. Findings were discussed with Dr. Triana. Dictated by: Oneil Davis M.D. on 07/19/2020 at 12:28 Approved by: Oneil Davis M.D. on 07/19/2020 at 12:49 ECG Data Attestation: I personally reviewed and interpreted this ECG as follows: Prior ECG tracings: not available for review Interpretation: Sinus rhythm rate 86 WA 146 QRS is 76 and QTC of 507. No ST elevation depression appreciated prolonged QT noted. MDM Narrative Medical decision making narrative: This is an 84-year-old male with known metastatic prostate cancer. Patient has fall yesterday resulting in likely sternal fracture and left hip fracture unclear if this could be pathologic. He also has multiple known compression fractures in his thoracic and lumbar spine which were present on prior imaging. Patient also appears to be in acute renal failure. NSTEMI with elevated troponin and no acute EKG findings appreciated. Patient also appears to be septic with a white count of 21, lactate of 7 and elevated procalcitonin at 2. Unclear source cultures were obtained. Patient only had very minimal amount of urine output after 2 L of fluid he was hypotensive after arrival he appears to be responding to fluids BP has improved to the 100-120 systolic range. Patient also clinically appears quite dehydrated . After long discussion with patient about goals of care he had not decided on POLST status before but at this time wants to be full code and is willing for aggressive measures and transfer to larger facility at this time including possible dialysis, surgical intervention and CPR/intubation at this time. I did attempt to contact his sister Sunitha who assists with making decisions but was unable to reach her and there is no option to leave a voicemail. She is currently returning to her home on [place]. Contact # is [phone] for Sunitha Fernández. At this time anticoagulation was held for nstem a as patient does have a hip fracture. Antibiotics were initiated, pressures have been improving and he has not required pressors. Patient defers additional pain medication at this time. Critical Care Time Critical Care Time Critical Care Time: Yes Total Critical Care Time: 125 Attestation: The high probability of a clinically significant, sudden or life threatening deterioration of the [cardiac, pulm] system(s) required my full and direct attention, intervention and personal management. The aggregate critical care time was [125] minutes. This time is in addition to time spent performing reported procedures but includes the following: [x] Data Review and interpretation [x] Patient assessment and monitoring of vital signs [x] Documentation [x] Medication orders and management Discharge Plan Departure Patient Disposition: [facility] Clinical Impression: Closed fracture of left hip, Sepsis, Acute kidney injury, Non-ST elevation OK (NSTEMI) Prescriptions: No Action Xtandi 40 mg Capsule 160 mg PO DAILY Qty: 120 RF: 11 oxycodone 10 mg tablet 10 - 20 mg PO Q8H PRN (Reason: cancer pain) RF: 0 Lupron 1 dose SUBCUT [id number] RF: 0 Referrals: Yolande Flores MD [Primary Care Provider] -
[2020-07-19 11:47] LABS: Alanine Aminotransferase 28 IU/L (<50); Neutrophils Absolute Manual 18445 /uL (3000-5900); Total Cells Counted 100
[2020-07-19 11:48] LABS: Anisocytosis 2+
[2020-07-19 11:55] LABS: CKMB % Relative Index 0.7 % (1.5-5.0); Creatine Kinase MB 6.36 ng/mL (<2.37); HEMOLYSIS 16 (0-50)
[2020-07-19 11:56] LABS: Lactate (Lactic Acid) 7.3 mmol/L (0.7-2.1); Procalcitonin 2.09 ng/mL (<0.5)
--- NOTE | 2020-07-19 12:13 | DI.CT.S_ITS ---
PROCEDURE: CT CHEST ABD PEL W CON INDICATIONS: fall, left hip pain, metastatic pancreatic cancer TECHNIQUE: After the administration of intravenous contrast, 5 mm thick sections acquired from the lung apices to the symphysis. 2.5 mm thick coronal and sagittal reformats were acquired. Additional 7 mm thick coronal maximum intensity projection (MIP) reformats acquired through the lungs. Optional 10-minute delayed imaging may be performed from the kidneys to the bladder. For radiation dose reduction, the following was used: automated exposure control, adjustment of mA and/or kV according to patient size. COMPARISON: [facility], NM, NM BONE SCAN WHOLE BODY, 07/11/2020, 12:31. [facility], MR, MR THORACIC SPINE WO/W CON, 07/05/2020, 9:17. [facility], CT, CT CHEST ABD PEL W CON, 09/04/2019, 10:31. FINDINGS: FINDINGS: Image quality: Excellent. CHEST: Lungs and pleura: No acute air space opacities. Subpleural septal thickening is noted and appears unchanged. No pleural effusions or pneumothorax. Central and peripheral airways are patent and normal in caliber. Mediastinum: Heart size is normal. The coronary arteries have atherosclerotic calcifications. No pericardial effusion. No mediastinal adenopathy by size criteria. Thoracic aorta and central pulmonary arteries are normal in size. Esophagus is normal in caliber. There is a small hiatal hernia. Chest wall: Thyroid gland is normal . No soft tissue abnormality. ABDOMEN: Solid organs: Liver: The liver has no mass or intrahepatic biliary ductal dilatation. The portal vein and hepatic veins are patent. Biliary: The gallbladder has no gallstones, pericholecystic fluid, gallbladder wall thickening, or surrounding inflammatory change. Pancreas: The pancreas has no mass or ductal dilatation. There is no surrounding inflammation. Spleen: Normal size. There are no masses. Adrenals: No hypertrophy or nodules. Kidneys: No obstructive calculus or hydronephrosis. No solid mass. No cystic mass. Bowel: The distal esophagus and stomach are normal. The small bowel has a normal caliber and appearance. The terminal ileum is normal. The large bowel has a normal caliber and appearance. The appendix is normal. No free fluid or air. Nodes and vessels: No retroperitoneal or mesenteric adenopathy by size criteria. Aorta and inferior vena cava are normal in size. Abdominal wall: No abdominal wall mass or hernia. PELVIS: Genitourinary: The bladder has no wall thickening or mass. No bladder calcifications. Miscellaneous: No inguinal hernias or adenopathy. BONES: There is a nondisplaced fracture of the upper body of the sternum. There is a compression fracture of T10 with 20 percent anterior height loss, T12 with 10 percent anterior height loss, L1 with 80 percent anterior height loss, and L2 with convexity of the inferior endplate. The T12 compression fracture has approximately 2 millimeters retropulsion. The L1 compression fracture has 9 millimeters retropulsion causing severe central canal stenosis. There are multiple punctate foci of sclerosis throughout the thoracic and lumbar spine which appear similar to the prior CT on 09/04/2019 however are suspicious for metastatic disease. The left hip has a severely comminuted, displaced, and angulated intertrochanteric hip fracture. IMPRESSION: 1. Multiple thoracic and lumbar compression fractures are unchanged compared to MRI on 07/05/2020. 2. Sternal fracture is probably new since there was no activity in the sternum on bone scan dated 07/11/20. 3. Severely comminuted and angulated left intertrochanteric hip fracture. 4. 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 Findings were discussed with Dr. Triana. Dictated by: Oneil Davis M.D. on 07/19/2020 at 12:28 Approved by: Oneil Davis M.D. on 07/19/2020 at 12:49
[2020-07-19 12:15] LABS: Troponin I 0.126 ng/mL (0.01-0.034)
[2020-07-19 12:34] LABS: COVID19 - ADMIT (NP swab/PCR) Negative (Negative)
[2020-07-19] MEDS: PIPERACILLIN-TAZO 3.375 GM/50 ML FROZ.PIGGY IV (12:45)
[2020-07-19 13:17] LABS: Appearance Urine UA CLOUDY; Bilirubin Urine UA 1+ (NEGATIVE); Color Urine UA YELLOW; Glucose Urine UA NEGATIVE (Negative); Ketones Urine UA NEGATIVE (NEGATIVE); Leukocyte Esterase Urine UA TRACE (NEGATIVE); Nitrite Urine UA POSITIVE (Negative); Occult Blood Urine UA 3+ (Negative); Protein Urine UA 2+ (Negative); Specific Gravity Urine UA 1.025 (1.000-1.035); Urobilinogen Urine UA 0.2 E.U./dL (0.2)
[2020-07-19 13:29] LABS: Reflexed Lactate in 2 Hours Y
[2020-07-19 13:29] LABS: Bacteria Urine Many (>30); Granular Casts Urine 1-5/LPF; Hyaline Casts Urine 5-10/LPF; Ictotest Urine Negative (Negative); RBC Urine 5-10/HPF (0-5/HPF); Squamous Epithelial Cell Urine 1-5 /HPF (0-5/HPF); WBC Urine 1-5/HPF (0-5/HPF)
[2020-07-19 13:30] LABS: Culture Indicated Urine Specimen Cultured
[2020-07-19 14:07] LABS: Lactate 2HR (Lactic Acid Rflx) 1.6 mmol/L (0.7-2.1)
[2020-07-19 14:19] LABS: Troponin I 0.108 ng/mL (0.01-0.034)
[2020-07-19] MEDS: SODIUM CHLORIDE 0.9% 1,000 ML 200 ML IV (14:21)
[2020-07-19] MEDS: fentaNYL 100 MCG/2 ML INJ (14:59)
== END 2020-07-19 15:06 | disposition short-term general hospital (02) ==
PROVIDERS: Emergency Provider Emergency Medicine; PCP Student in an Organized Health Care Education/Training Program
DX: A41.9 Sepsis, unspecified organism (principal); I21.4 Non-ST elevation (NSTEMI) myocardial infarction; N17.9 Acute kidney failure, unspecified; S72.002A Fracture of unspecified part of neck of left femur, initial encounter for closed fracture; S22.20XA Unspecified fracture of sternum, initial encounter for closed fracture; C25.9 Malignant neoplasm of pancreas, unspecified; S22.089A Unspecified fracture of T11-T12 vertebra, initial encounter for closed fracture; S22.079A Unspecified fracture of T9-T10 vertebra, initial encounter for closed fracture; S32.019A Unspecified fracture of first lumbar vertebra, initial encounter for closed fracture; I95.9 Hypotension, unspecified; Z86.73 Personal history of transient ischemic attack (TIA), and cerebral infarction without residual deficits; W18.30XA Fall on same level, unspecified, initial encounter
CPT/HCPCS: 36415; 51701; 70450; 71260; 72125; 74177; 80053; 81001; 82550; 82553; 83605; 83690; 83735; 84145; 84484; 85007; 85025; 85610; 85730; 87040; 87077; 87086; 87186; 87635; 93005; 93010; 96361; 96365; 99285; 99291; 99292; J2543; J3010